=== PATIENT | male | born 2000 | race Caucasian/White ===

== ENCOUNTER 2020-10-10 15:36 | Outpatient (CLI) | payer OTHER | END 2020-10-10 15:37 | disposition EMS.NT | LOC: EMS 15:36 | DX: S30.811A Abrasion of abdominal wall, initial encounter (principal); M79.642 Pain in left hand; V28.4XXA Motorcycle driver injured in noncollision transport accident in traffic accident, initial encounter; Y93.55 Activity, bike riding; Y92.413 State road as the place of occurrence of the external cause ==

== ENCOUNTER 2020-10-10 16:28 | Emergency (ER) | payer OTHER ==
[2020-10-10 16:50] VITALS: BP 136/74
[2020-10-10] MEDS ORDERED: IBUPROFEN 800 MG TABLET PO STA (17:06)
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
--- NOTE | 2020-10-10 17:21 | XRAY Report ---
PROCEDURE: Wrist 4 View LT INDICATIONS: wrist inj TECHNIQUE: 4 views of the wrist were acquired. COMPARISON: None FINDINGS: Bones: No dislocations. No suspicious bony lesions. There is a comminuted impacted intra-articular fracture at the base of the first metacarpal. The underlying trapezium and navicular bone show no de finite trauma. Scaphoid view: No trauma the scaphoid is found. Soft tissues: No suspicious soft tissue calcifications. IMPRESSION: Impacted intra-articular mildly comminuted fracture that appears acute at the base of the first metac arpal. No carpal bone trauma found. Reviewed by: Terence Amin MD on 10/10/2020 5:20 PM PDT Approved by: Terence Amin MD on 10/10/2020 5:20 PM PDT Station ID: [id number]
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
== END 2020-10-10 17:55 | disposition home or self-care (01) ==
LOC: ED 16:28
DX: S62.232A Other displaced fracture of base of first metacarpal bone, left hand, initial encounter for closed fracture (principal); V28.4XXA Motorcycle driver injured in noncollision transport accident in traffic accident, initial encounter; Y93.55 Activity, bike riding; Y92.410 Unspecified street and highway as the place of occurrence of the external cause
CPT/HCPCS: 29125; 73110; 73130; 99283; A9270